=== PATIENT | female | born 1930 | race Caucasian/White ===

== ENCOUNTER → 2017-08-20 | Outpatient (CLI) | payer MEDICARE, BC ==
--- NOTE | 2017-08-20 15:41 | NM ---
EXAMINATION TYPE: NM bone scan whole body DATE OF EXAM: 08/20/2017 COMPARISON: Plain film from outside institution 08/13/2017 HISTORY: Pain in thoracic spine Delayed whole-body scanning was performed following the injection of 27.8 mCi Tc 99m MDP. Images acq uired 3 hours post injection. FINDINGS: There is a marked thoracic lumbar scoliosis as noted on plain film. Bandlike area of increased radio paracentral uptake is noted at approximately T7 or T8 level compatible with wedge compression deformi ty seen on plain film. There may be rudimentary rib at L1. Bone mineralization is reduced. Costoverte bral angle uptake is mildly increased at the lower thoracic levels likely due to degenerative change. Uptake within the proximal humerus bilaterally, knees, hands, wrists is likely degenerative. Soft tis darryl uptake is normal. Uptake along the anterior seventh rib on the right may be posttraumatic. Sterno clavicular joint arthropathy also suspected. IMPRESSION: Osteoporotic compression fracture possibly T7 or T8. Correlate for anterior rib fracture on the right . Degenerative changes as described.
== END | disposition home or self-care (01) ==
LOC: RADNMMAIN 10:39
PROVIDERS: ATTEND Physical Medicine & Rehabilitation
DX: S22.050A Wedge compression fracture of T5-T6 vertebra, initial encounter for closed fracture (principal); M47.24 Other spondylosis with radiculopathy, thoracic region
CPT/HCPCS: 78306; A9503

== ENCOUNTER → 2017-09-04 | Outpatient (CLI) | payer MEDICARE, BC ==
--- NOTE | 2017-09-08 18:13 | ENG ---
ELECTRONYSTAGMOGRAM REPORT VIDEO ELECTRONYSTAGMOGRAPHIC REPORT: AGE: 86 VNG INDICATIONS: 86 -year-old female with vertigo onset 4 months ago and staying the same. Dizziness can be provoked by any of the body positions, hearing loss left ear, tinnitus in the left ear, pulsating. VNG FINDINGS: SPONTANEOUS NYSTAGMUS: SACCADES: Saccades shows intact peak velocities, accuracies and latencies. GAZE TEST: Gaze with fixation shows no nystagmus in any of the directions of gaze including centrally with vision denied. SINUSOIDAL TRACKING: Tracking shows no significant breakups at faster or slower speeds. OKN TEST: STEFANIA-HALLPIKE TEST: [place] Hallpike maneuver's were unable to be performed for the same reason. POSITION TEST: Static position testing in four different positions with eyes opened and with vision denied shows no nystagmus. 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 CALORIC TEST: Caloric testing shows 33% unilateral left caloric weakness. CONCLUSIONS: Mild chronic left vestibulopathy, well compensated. No other abnormalities found on testing. MMODL / IJN: [id number] /
== END | disposition home or self-care (01) ==
LOC: NEUROMAIN 07:08
PROVIDERS: ATTEND Family Medicine
DX: R42 Dizziness and giddiness (principal)
CPT/HCPCS: 92537; 92540

== ENCOUNTER → 2017-09-14 | Outpatient (CLI) | payer MEDICARE, BC ==
--- NOTE | 2017-09-15 17:00 | MR ---
EXAMINATION TYPE: MR brain and iac wo/w con DATE OF EXAM: 09/14/2017 COMPARISON: MRI brain 09/07/2015 HISTORY: 86-year-old female Tinnitus /Hearing loss / Vertigo TECHNIQUE: Multiplanar, multisequence images of the brain and brainstem were acquired before and aft er administration of 5.5 mL IV Gadavist. Diffusion weighted imaging was performed. Additional coned -down sequences through the internal auditory canals and posterior cranial fossa before and after IV contrast administration. FINDINGS: Diffusion weighted images demonstrate no evidence of an acute ischemic lesion in the brain. 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 This has variable m easurements on different sequences likely due to prominent pulsations. On some sequences, it measures up to 2.1 cm wide by 1.6 cm AP by 2.2 cm craniocaudal. This appears to be relatively stable as temitope red to 09/07/2015. The patient 6 x 4 mm fusiform dilatation of the basilar terminus appears relatively stable. Also, red emonstrated hypoplastic A1 segment right anterior cerebral artery. Midline structures demonstrate normal morphology. The craniocervical junction is normal. There is mild cerebral atrophy. The ventricles are of normal caliber. There is no evidence of an acute intracranial hemorrhage, infarct, mass, mass-effect or an extra-axia l fluid collection. There is no cerebellopontine angle mass. The internal auditory canals are symmetric. T2/FLAIR weighted sequences again show moderate patchy burning right white matter change particularly in the subcortical and deep white matter of both cerebral hemispheres. Confluent increased white mat ter signal is present in the periventricular regions. No significant change prior. Some patchy bilate ral paramedian pontine activity is also noted. Otherwise, no brainstem or skull base abnormalities are seen. Post contrast images demonstrate no evidence of pathologic enhancement in the posterior cranial maxwell a or the internal auditory canals. There is no abnormal enhancement of the labyrinths. Retained fluid within the right mastoid air cells. Mild mucosal thickening within the ethmoid air bertrand ls. Upper cervical spondylosis with accentuated cervical lordosis and ligamentum flavum thickening causin g mild to moderate narrowing of the upper spinal canal with prominent dorsal cord abutment. IMPRESSION: 1. 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 Appropriate follow-up and management is recommended. This does not seem to have significantly changed as compare d to 09/07/2015. (Aneurysm is remeasured on the old exam to decrease the chances of measurement discre pancy). 2. No acute intracranial abnormality seen. 3. Moderate burden of chronic T2 bright white matter change. This is nonspecific and likely relates t o chronic small vessel ischemic disease. 4. Trapped fluid in the right mastoid air cells. Correlate for any mastoid pain to exclude mastoiditi s. Otherwise, no specific abnormality seen on acoustic MRI. 5. Upper cervical spondylosis causing mild to moderate spinal canal narrowing.
== END | disposition home or self-care (01) ==
LOC: RADMRIMAIN 13:58
PROVIDERS: ATTEND Otolaryngology
DX: I67.1 Cerebral aneurysm, nonruptured (principal); H93.12 Tinnitus, left ear; H91.92 Unspecified hearing loss, left ear; R42 Dizziness and giddiness
CPT/HCPCS: 82565; 70553; A9581

== ENCOUNTER → 2018-06-10 | Outpatient (CLI) | payer MEDICARE, BC ==
--- NOTE | 2018-06-11 08:20 | BD ---
EXAMINATION TYPE: Axial Bone Density DATE OF EXAM: 06/10/2018 COMPARISON: NONE CLINICAL HISTORY: Postmenopausal female Height: 5 FT 1 IN Weight: 129 RISK FACTORS HISTORY OF: Postmenopausal woman: AGE MID 50'S Lost more than 2 inches in height since high school: YES Frequent falls: VERY UNSTEADY USES CANE MEDICATIONS: Additional Medications: FISH OIL, B12, BIOTIN,MAGNESIUM, COQ10, TYLENOL ARTHRITIS, ZOLOFT, MEMORY MED S, ATORVASTATIN, Additional History: EXAM MEASUREMENTS: Bone mineral densitometry was performed using the [employer] System. Bone mineral density as measured about the Lumbar spine is: ----- L1-L4(G/cm2): 0.902 T Score Values are as follows: ----- L2: -3.1 ----- L3: -2.3 ----- L4: -2.2 ----- L1-L4: -2.3 BASELINE Bone mineral density about the R hip (g/cm2): 0.647 Bone mineral density about the L hip (g/cm2): 0.580 T Score values are as follows: -----R Neck: -2.8 -----L Neck: -3.3 -----R Total: -3.2 -----L Total: -3.2 BASELINE IMPRESSION: Osteoporosis (T Score less than -2.5). There is increased fracture risk and therapy is usually indicated based on age. Re-Screen 1-2 years. NOTE: T-SCORE=SD OF THE YOUNG ADULT MEAN.
== END | disposition home or self-care (01) ==
LOC: RADBDWWP 15:07
PROVIDERS: ATTEND Family Medicine
DX: M81.0 Age-related osteoporosis without current pathological fracture (principal)
CPT/HCPCS: 77080

== ENCOUNTER 2019-06-10 16:22 | Observation (INO) | payer MEDICARE, BC ==
[2019-06-10] MEDS ORDERED: SODIUM CHLORIDE 0.9% 1,000 ML IV STA (16:40)
[2019-06-10 17:18] LABS: Basophils % (A) 1 %; Eosinophils # (A) 0.1 k/uL (0-0.7); Eosinophils % (A) 1 %; HCT 38.3 % (34.0-46.0); HGB 12.5 gm/dL (11.4-16.0); Lymphocytes # (A) 1.5 k/uL (1.0-4.8); Lymphocytes % (A) 18 %; MCH 33.2 pg (25.0-35.0); MCHC 32.7 g/dL (31.0-37.0); MCV 101.5 fL (80.0-100.0); Mean Platelet Volume 5.9; Monocytes # (A) 0.4 k/uL (0-1.0); Monocytes % (A) 4 %; Neutrophils # (A) 6.5 k/uL (1.3-7.7); Neutrophils % (A) 75 %; Platelet Count 245 k/uL (150-450); RBC 3.77 m/uL (3.80-5.40); RDW 12.7 % (11.5-15.5); WBC 8.7 k/uL (3.8-10.6)
[2019-06-10 17:23] LABS: INR 0.9 (<1.2); Prothrombin Time 9.6 sec (9.0-12.0)
[2019-06-10 17:29] LABS: ALT 17 U/L (9-52); AST 30 U/L (14-36); African American GFR (CKD) >90 (>60 ml/min/1.73 sqM); Albumin 4.1 g/dL (3.5-5.0); Alkaline Phosphatase 87 U/L (38-126); Anion Gap 11 mmol/L; Blood Urea Nitrogen 12 mg/dL (7-17); Calcium 9.7 mg/dL (8.4-10.2); Carbon Dioxide 22 mmol/L (22-30); Chloride 104 mmol/L (98-107); Glucose 125 mg/dL (74-99); Non-African American GFR(CKD) 81 (>60 ml/min/1.73 sqM); Potassium 4.4 mmol/L (3.5-5.1); Sodium 137 mmol/L (137-145); Total Bilirubin 0.5 mg/dL (0.2-1.3); Total Protein 6.9 g/dL (6.3-8.2)
--- NOTE | 2019-06-10 17:33 | XR ---
EXAMINATION TYPE: XR chest 2V DATE OF EXAM: 06/10/2019 COMPARISON: NONE HISTORY: Dizziness and nausea TECHNIQUE: Frontal and lateral views of the chest are obtained. FINDINGS: Heart is normal. Lungs are clear of infiltrate. There is no heart failure. There are no hi lar masses. Thoracic aorta is atheromatous. There is slight anterior wedging of mid thoracic vertebra and mild thoracic kyphosis. IMPRESSION: No active cardiopulmonary disease. Atheromatous aorta. Mild thoracic midthoracic karyn chintan fractures unchanged compared to thoracic spine x-ray 08/13/2017.
[2019-06-10 19:05] LABS: Appearance,Urine Cloudy (Clear); Bacteria,Urine Rare /hpf; Bilirubin,Urine Negative (Negative); Blood,Urine Trace (Negative); Budding Yeast,Urine Few /hpf; Color,Urine Light Yellow; Glucose,Urine (UA) Negative (Negative); Ketones,Urine Negative (Negative); Leukocyte Esterase,Urine Negative (Negative); Mucus,Urine Rare /hpf; Nitrite,Urine Negative (Negative); PH, Urine 7.5 (5.0-8.0); Protein,Urine Negative (Negative); RBC,Urine 5 /hpf (0-5); Specific Gravity,Urine 1.008 (1.001-1.035); Urobilinogen,Urine <2.0 mg/dL (<2.0)
--- NOTE | 2019-06-10 19:10 | CT ---
EXAMINATION TYPE: CT brain wo con DATE OF EXAM: 06/10/2019 COMPARISON: MRI brain and internal auditory canals 09/14/2017 INDICATION: dizziness DLP: 1051.4 mGycm, Automated exposure control for dose reduction was used. CONTRAST: None CT of the brain is performed utilizing 3 mm thick sections through the posterior fossa and 3 mm thick sections through the remaining calvarium. Study is performed within 24 hours of arrival to the hosp [facility]. No abnormal hyperdensity is present to suggest an acute intracranial hemorrhage. No mass lesion is evident. No acute infarcts are evident. Periventricular white matter hypodensity is present, likely on the bas is of chronic white matter ischemic changes. Ventricles and sulci are appropriate for the patient age. There is distal right internal carotid artery dilatation peripheral calcification compatible with ane urysm. This was present on the MRI of 2018. This is estimated to measure transverse 1.5 cm which appe ars stable from comparison. The reported basilar tip aneurysm is less well appreciated on the current examination. There is some fusiform prominence of the left distal internal carotid artery and M1 segment. Paranasal sinuses and mastoid air cells within the [id number] are clear. IMPRESSIONS: 1. Atrophy with periventricular white matter changes. 2. 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 3. Additional prior aneurysms are not as appreciated on the current exam.
[2019-06-10] MEDS ORDERED: ONDANSETRON 4 MG/2 ML VIAL IVP PRN (19:50)
[2019-06-10] MEDS ORDERED: NALOXONE 0.4 MG/ML 1 ML VIAL IV PRN (19:50)
[2019-06-10] MEDS ORDERED: TEMAZEPAM 15 MG CAP PO PRN (19:50)
--- NOTE | 2019-06-10 19:50 | ED ---
Dizziness HPI - General Chief Complaint: Dizziness Stated Complaint: Nausea Time Seen by Provider: 06/10/19 16:40 Source: patient, EMS Mode of arrival: EMS Limitations: no limitations - History of Present Illness Initial Comments: Patient presents with lightheadedness and dizziness, nausea and vomiting, syncope. She currently has no chest pain or belly pain or back pain. She is not throwing up at this time. She does not have a headache. She has no change in vision or hearing. She has a history of brain aneurysm. She has no neck pain or stiffness. She does not know the cause her symptoms and she was on the way to see her physician, when the symptoms began. She was not able to get out of the car because her symptoms were so severe. He is not sure how long she lost consciousness. - Related Data Home Medications Medication Instructions Recorded Confirmed Atorvastatin [Lipitor] 40 mg PO HS 02/13/16 06/10/19 Donepezil [Aricept] 5 mg PO HS 06/10/19 06/10/19 Latanoprost [Xalatan 0.005%] 1 drop BOTH EYES HS 06/10/19 06/10/19 Memantine [Namenda] 10 mg PO DAILY 06/10/19 06/10/19 Sertraline HCl [Zoloft] 100 mg PO DAILY 06/10/19 06/10/19 Timolol 0.5% Ophth Soln [Timoptic 1 drop BOTH EYES BID 06/10/19 06/10/19 0.5% Ophth Soln] Allergies Allergy/AdvReac Type Severity Reaction Status Date / Time peanut Allergy Nausea & Verified 06/10/19 18:51 Vomiting red dye Allergy Unknown Verified 06/10/19 18:51 acetaminophen AdvReac Unknown Verified 06/10/19 18:51 [From Tylenol-Codeine #3] aspirin [From Norgesic] AdvReac Unknown Verified 06/10/19 18:51 brompheniramine maleate AdvReac Unknown Verified 06/10/19 18:51 [From Drixoral] caffeine [From Norgesic] AdvReac Unknown Verified 06/10/19 18:51 chlorpheniramine AdvReac Unknown Verified 06/10/19 18:51 [From Novahistine DH] chlorpheniramine maleate AdvReac Unknown Verified 06/10/19 18:51 [From Ornade] chlorpromazine HCl AdvReac Unknown Verified 06/10/19 18:51 [From Thorazine] codeine AdvReac Unknown Verified 06/10/19 18:51 codeine phosphate AdvReac Unknown Verified 06/10/19 18:51 [From Tylenol-Codeine #3] dexbrompheniramine maleate AdvReac Unknown Verified 06/10/19 18:51 [From Drixoral] dextromethorphan HBr AdvReac Unknown Verified 06/10/19 18:51 [From Triaminic Cold & Cough] dicyclomine AdvReac Unknown Verified 06/10/19 18:51 dihydrocodeine bitartrate AdvReac Unknown Verified 06/10/19 18:51 [From Novahistine DH] imipramine HCl AdvReac Unknown Verified 06/10/19 18:51 [From Tofranil] orphenadrine citrate AdvReac Unknown Verified 06/10/19 18:51 [From Norgesic] oxazepam [From Serax] AdvReac Unknown Verified 06/10/19 18:51 oxytetracycline AdvReac Unknown Verified 06/10/19 18:51 [From Terramycin] oxytetracycline HCl AdvReac Unknown Verified 06/10/19 18:51 [From Terramycin] paroxetine HCl [From Paxil] AdvReac Unknown Verified 06/10/19 18:51 Penicillins AdvReac Unknown Verified 06/10/19 18:51 phenazopyridine AdvReac Unknown Verified 06/10/19 18:51 phenylephrine HCl AdvReac Unknown Verified 06/10/19 18:51 [From Novahistine DH] phenylpropanolamine HCl AdvReac Unknown Verified 06/10/19 18:51 [From Ornade] propoxyphene HCl AdvReac Unknown Verified 06/10/19 18:51 [From Darvon] pseudoephedrine HCl AdvReac Unknown Verified 06/10/19 18:51 [From Drixoral] pseudoephedrine sulfate AdvReac Unknown Verified 06/10/19 18:51 [From Drixoral] Sulfa (Sulfonamide AdvReac Unknown Verified 06/10/19 18:51 Antibiotics) sulfamethoxazole AdvReac Unknown Verified 06/10/19 18:51 [From Bactrim] tetracycline AdvReac Unknown Verified 06/10/19 18:51 tetracycline HCl AdvReac Unknown Verified 06/10/19 18:51 [From Tetracyn] trimethobenzamide HCl AdvReac Unknown Verified 06/10/19 18:51 [From Tigan] trimethoprim [From Bactrim] AdvReac Unknown Verified 06/10/19 18:51 Review of Systems ROS Statement: Those systems with pertinent positive or pertinent negative responses have been documented in the HPI. ROS Other: All systems not noted in ROS Statement are negative. Past Medical History Past Medical History: Coronary Artery Disease (CAD), Dementia, Hyperlipidemia, Memory Impairment Additional Past Medical History / Comment(s): glaucoma History of Any Multi-Drug Resistant Organisms: None Reported Past Surgical History: Hysterectomy Additional Past Surgical History / Comment(s): cataracts Past Psychological History: Depression Smoking Status: Never smoker Past Alcohol Use History: None Reported Past Drug Use History: None Reported - Past Family History Mother Family Medical History: Cancer General Exam Limitations: no limitations General appearance: alert, in no apparent distress Head exam: Present: atraumatic, normocephalic, normal inspection Eye exam: Present: normal appearance, PERRL, EOMI. Absent: scleral icterus, conjunctival injection, periorbital swelling ENT exam: Present: normal exam, mucous membranes moist Neck exam: Present: normal inspection. Absent: tenderness, meningismus, lymphadenopathy Respiratory exam: Present: normal lung sounds bilaterally. Absent: respiratory distress, wheezes, rales, rhonchi, stridor Cardiovascular Exam: Present: regular rate, normal rhythm, normal heart sounds. Absent: systolic murmur, diastolic murmur, rubs, gallop, clicks GI/Abdominal exam: Present: soft, normal bowel sounds. Absent: distended, tenderness, guarding, rebound, rigid Extremities exam: Present: normal inspection, full ROM, normal capillary refill. Absent: tenderness, pedal edema, joint swelling, calf tenderness Back exam: Present: normal inspection Neurological exam: Present: alert, oriented X3, CN II-XII intact Psychiatric exam: Present: normal affect, normal mood Skin exam: Present: warm, dry, intact, normal color. Absent: rash Course Vital Signs 06/10/19 06/10/19 16:30 18:28 Temperature 97 F L Pulse Rate 60 65 Respiratory 18 18 Rate Blood Pressure 157/89 127/70 O2 Sat by Pulse 97 97 Oximetry EKG Findings - EKG Comments: EKG Findings:: Twelve-lead EKG shows ventricular rate 1 bpm, slightly prolonged MS interval, normal QRS complexes, no ST elevation or depression, interpreted by me as sinus rhythm with first-degree AV block. Medical Decision Making - Medical Decision Making Patient presents after syncopal episode. Her EKG is normal. Troponin is negative. CT of the head is negative. I don't have an exact etiology on her symptoms. Given her significant past medical history she will be admitted to the hospital. - Lab Data Result diagrams: 06/10/19 16:55 06/10/19 16:55 Lab Results 06/10/19 06/10/19 06/10/19 Range/Units 16:55 16:55 16:55 WBC 8.7 (3.8-10.6) k/uL RBC 3.77 L (3.80-5.40) m/uL Hgb 12.5 (11.4-16.0) gm/dL Hct 38.3 (34.0-46.0) % MCV 101.5 H (80.0-100.0) fL MCH 33.2 (25.0-35.0) pg MCHC 32.7 (31.0-37.0) g/dL RDW 12.7 (11.5-15.5) % Plt Count 245 (150-450) k/uL Neutrophils % 75 % Lymphocytes % 18 % Monocytes % 4 % Eosinophils % 1 % Basophils % 1 % Neutrophils # 6.5 (1.3-7.7) k/uL Lymphocytes # 1.5 (1.0-4.8) k/uL Monocytes # 0.4 (0-1.0) k/uL Eosinophils # 0.1 (0-0.7) k/uL Basophils # 0.0 (0-0.2) k/uL PT (9.0-12.0) sec INR (<1.2) Sodium 137 (137-145) mmol/L Potassium 4.4 (3.5-5.1) mmol/L Chloride 104 (98-107) mmol/L Carbon Dioxide 22 (22-30) mmol/L Anion Gap 11 mmol/L BUN 12 (7-17) mg/dL Creatinine 0.64 (0.52-1.04) mg/dL Est GFR (CKD-EPI)AfAm >90 (>60 ml/min/1.73 sqM) Est GFR (CKD-EPI)NonAf 81 (>60 ml/min/1.73 sqM) Glucose 125 H (74-99) mg/dL Plasma Lactic Acid Lee 0.9 (0.7-2.0) mmol/L Calcium 9.7 (8.4-10.2) mg/dL Total Bilirubin 0.5 (0.2-1.3) mg/dL AST 30 (14-36) U/L ALT 17 (9-52) U/L Alkaline Phosphatase 87 (38-126) U/L Troponin I (0.000-0.034) ng/mL Total Protein 6.9 (6.3-8.2) g/dL Albumin 4.1 (3.5-5.0) g/dL Urine Color Urine Appearance (Clear) Urine pH (5.0-8.0) Ur Specific [place] (1.001-1.035) Urine Protein (Negative) Urine Glucose (UA) (Negative) Urine Ketones (Negative) Urine Blood (Negative) Urine Nitrite (Negative) Urine Bilirubin (Negative) Urine Urobilinogen (<2.0) mg/dL Ur Leukocyte Esterase (Negative) Urine RBC (0-5) /hpf Urine WBC (0-5) /hpf Urine Bacteria (None) /hpf Urine Mucus (None) /hpf Urine Yeast (Budding) (None) /hpf 06/10/19 06/10/19 06/10/19 Range/Units 16:55 16:55 18:22 WBC (3.8-10.6) k/uL RBC (3.80-5.40) m/uL Hgb (11.4-16.0) gm/dL Hct (34.0-46.0) % MCV (80.0-100.0) fL MCH (25.0-35.0) pg MCHC (31.0-37.0) g/dL RDW (11.5-15.5) % Plt Count (150-450) k/uL Neutrophils % % Lymphocytes % % Monocytes % % Eosinophils % % Basophils % % Neutrophils # (1.3-7.7) k/uL Lymphocytes # (1.0-4.8) k/uL Monocytes # (0-1.0) k/uL Eosinophils # (0-0.7) k/uL Basophils # (0-0.2) k/uL PT 9.6 (9.0-12.0) sec INR 0.9 (<1.2) Sodium (137-145) mmol/L Potassium (3.5-5.1) mmol/L Chloride (98-107) mmol/L Carbon Dioxide (22-30) mmol/L Anion Gap mmol/L BUN (7-17) mg/dL Creatinine (0.52-1.04) mg/dL Est GFR (CKD-EPI)AfAm (>60 ml/min/1.73 sqM) Est GFR (CKD-EPI)NonAf (>60 ml/min/1.73 sqM) Glucose (74-99) mg/dL Plasma Lactic Acid Lee (0.7-2.0) mmol/L Calcium (8.4-10.2) mg/dL Total Bilirubin (0.2-1.3) mg/dL AST (14-36) U/L ALT (9-52) U/L Alkaline Phosphatase (38-126) U/L Troponin I <0.012 (0.000-0.034) ng/mL Total Protein (6.3-8.2) g/dL Albumin (3.5-5.0) g/dL Urine Color Light Yellow Urine Appearance Cloudy H (Clear) Urine pH 7.5 (5.0-8.0) Ur Specific [place] 1.008 (1.001-1.035) Urine Protein Negative (Negative) Urine Glucose (UA) Negative (Negative) Urine Ketones Negative (Negative) Urine Blood Trace H (Negative) Urine Nitrite Negative (Negative) Urine Bilirubin Negative (Negative) Urine Urobilinogen <2.0 (<2.0) mg/dL Ur Leukocyte Esterase Negative (Negative) Urine RBC 5 (0-5) /hpf Urine WBC 1 (0-5) /hpf Urine Bacteria Rare H (None) /hpf Urine Mucus Rare H (None) /hpf Urine Yeast (Budding) Few H (None) /hpf Disposition Clinical Impression: Syncope Disposition: ADMITTED IP TO THIS [facility] Condition: Fair Is patient prescribed a controlled substance at d/c from ED?: No Referrals: Willam Marcial MD [Primary Care Provider] - 1-2 days
[2019-06-10] MEDS ORDERED: DONEPEZIL 5 MG TAB PO SCH (21:00)
[2019-06-10] MEDS: TIMOLOL 0.5% OPHTH DROPS 5 ML BTL BOTH EYES SCH ×2 (22:18→22:19)
[2019-06-10] MEDS: LATANOPROST 0.005% OPHTH DROPS 2.5 ML BTL BOTH EYES SCH ×2 (22:18→22:20)
[2019-06-10] MEDS: ATORVASTATIN 40 MG TAB PO SCH (22:18)
[2019-06-10] MEDS ORDERED: ACETAMINOPHEN TAB 325 MG TAB PO STA (22:21)
--- NOTE | 2019-06-11 09:49 | P.CRDCN ---
History of Present Illness History of present illness: This is a pleasant 88-year-old female past medical history significant history for dementia, dyslipidemia and rheumatic fever as a child. She and her daughter deny any prior history of coronary artery disease, DC or stent placements. 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 We have been asked to see her in consultation for syncope. She states yesterday she was driving in the car with her daughter going to a physician appointment. When they got to the parking lot she attempted to get out of the car and started to feel acutely dizzy. She states her head felt very heavy and she thought she was going to fall backwards. She could not keep her balance and also felt very "foggy". Bystanders got a wheelchair and assisted her to sitting down. She denies falling or loss of consciousness. She denies associated chest pain, shortness of breath, palpitations, nausea, vomiting or diaphoresis. She is seen and examined laying flat resting comfortably in bed. She is complaining only of an achy sensation in the left lower back. Orthostatic vital signs obtained on admission were unremarkable. Telemetry tracings have been unremarkable. EKG reveals sinus mechanism with first degree AVB, left axis deviation and prior anterior wall DC. Laboratory data reviewed, WBC 8.7, hgb 12.5, plt 245, sodium 137, potassium 4.4, creatinine 0.64, cardiac enzymes negative x3. Chest xray negative for an acute cardiopulmonary process. Atheromatous aorta. Mild thoracic and mid-thoracic compression fracture. 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 Current daily cardiac medication include atorvastatin 40 mg daily. At the time of my exam: CONSTITUTIONAL: Denies fever. Denies chills. EYES: Denies blurred vision. Denies vision changes. Denies eye pain. EARS, NOSE, MOUTH & THROAT: Denies headache. Denies sore throat. Denies ear pain. CARDIOVASCULAR: Denies chest pain. Denies shortness of breath. Denies orthopnea. Denies PND. Denies palpitations. RESPIRATORY: Denies cough. GASTROINTESTINAL: Denies abdominal pain. Denies diarrhea. Denies constipation. Denies nausea. Denies vomiting. MUSCULOSKELETAL: Denies myalgias. INTEGUMENTARY: Denies pruitis. Denies rash. NEUROLOGIC: Denies numbness. Denies tingling. Denies weakness. PSYCHIATRIC: Denies anxiety. Denies depression. ENDOCRINE: Denies fatigue. Denies weight change. Denies polydipsia. Denies polyurina. GENITOURINARY: Denies burning, hematuria or urgency with micturation. HEMATOLOGIC: Denies history of anemia. Denies bleeding. Blood pressure 129/76 heart rate 79 afebrile maintaining oxygen saturation on room air GENERAL: This is a 88-year-old female in no apparent distress at the time of my examination. HEENT: Head is atraumatic, normocephalic. Pupils are equal, round. Sclerae anicteric. Conjunctivae are clear. Mucous membranes of the mouth are moist. Neck is supple. There is no jugular venous distention. No carotid bruit is heard. LUNGS: Clear to auscultation no wheezes, rales or rhonchi. No chest wall tenderness is noted on palpation or with deep breathing. HEART: Regular rate and rhythm without murmurs, rubs or gallops. S1 and S2 heard. ABDOMEN: Soft, nontender. Bowel sounds are heard. No organomegaly noted. EXTREMITIES: No evidence of peripheral edema and no calf tenderness noted. VASCULAR: Radial and dorsalis pedis pulses palpated, no evidence of clubbing. NEUROLOGIC: Patient is awake, alert and oriented x3. ASSESSMENT Near syncope, no LOC per the patient Dyslipidemia History of dementia PLAN An acute coronary event has been ruled out. No telemetry abnormalities or arrhythmia noted. No orthostatic changes. Obtain 2D echocardiogram and doppler study to assess cardiac structure and function. Check d-dimer. Thank you kindly for this consultation. Nurse Practitioner note has been reviewed, I agree with a documented findings and plan of care. Patient was seen and examined. Past Medical History Past Medical History: Coronary Artery Disease (CAD), Dementia, Hyperlipidemia, Memory Impairment Additional Past Medical History / Comment(s): glaucoma, diverticulitis, rheumatic fever as a child History of Any Multi-Drug Resistant Organisms: None Reported Past Surgical History: Hysterectomy Additional Past Surgical History / Comment(s): cataracts, brain aneurysm repair Past Anesthesia/Blood Transfusion Reactions: No Reported Reaction Past Psychological History: Depression Smoking Status: Never smoker Past Alcohol Use History: None Reported Past Drug Use History: None Reported - Past Family History Mother Family Medical History: Cancer Medications and Allergies Home Medications Medication Instructions Recorded Confirmed Type Atorvastatin [Lipitor] 40 mg PO HS 02/13/16 06/10/19 History Donepezil [Aricept] 5 mg PO HS 06/10/19 06/10/19 History Latanoprost [Xalatan 0.005%] 1 drop BOTH EYES HS 06/10/19 06/10/19 History Memantine [Namenda] 10 mg PO DAILY 06/10/19 06/10/19 History Sertraline HCl [Zoloft] 100 mg PO DAILY 06/10/19 06/10/19 History Timolol 0.5% Ophth Soln [Timoptic 1 drop BOTH EYES BID 06/10/19 06/10/19 History 0.5% Ophth Soln] Allergies Allergy/AdvReac Type Severity Reaction Status Date / Time peanut Allergy Nausea & Verified 06/10/19 21:06 Vomiting red dye Allergy Unknown Verified 06/10/19 21:06 acetaminophen AdvReac Unknown Verified 06/10/19 21:06 [From Tylenol-Codeine #3] aspirin [From Norgesic] AdvReac Unknown Verified 06/10/19 21:06 brompheniramine maleate AdvReac Unknown Verified 06/10/19 21:06 [From Drixoral] caffeine [From Norgesic] AdvReac Unknown Verified 06/10/19 21:06 chlorpheniramine AdvReac Unknown Verified 06/10/19 21:06 [From [facility]] chlorpheniramine maleate AdvReac Unknown Verified 06/10/19 21:06 [From Ornade] chlorpromazine HCl AdvReac Unknown Verified 06/10/19 21:06 [From Thorazine] codeine AdvReac Unknown Verified 06/10/19 21:06 codeine phosphate AdvReac Unknown Verified 06/10/19 21:06 [From Tylenol-Codeine #3] dexbrompheniramine maleate AdvReac Unknown Verified 06/10/19 21:06 [From Drixoral] dextromethorphan HBr AdvReac Unknown Verified 06/10/19 21:06 [From Triaminic Cold & Cough] dicyclomine AdvReac Unknown Verified 06/10/19 21:06 dihydrocodeine bitartrate AdvReac Unknown Verified 06/10/19 21:06 [From Novahistine DH] imipramine HCl AdvReac Unknown Verified 06/10/19 21:06 [From Tofranil] orphenadrine citrate AdvReac Unknown Verified 06/10/19 21:06 [From Norgesic] oxazepam [From Serax] AdvReac Unknown Verified 06/10/19 21:06 oxytetracycline AdvReac Unknown Verified 06/10/19 21:06 [From Terramycin] oxytetracycline HCl AdvReac Unknown Verified 06/10/19 21:06 [From Terramycin] paroxetine HCl [From Paxil] AdvReac Unknown Verified 06/10/19 21:06 Penicillins AdvReac Unknown Verified 06/10/19 21:06 phenazopyridine AdvReac Unknown Verified 06/10/19 21:06 phenylephrine HCl AdvReac Unknown Verified 06/10/19 21:06 [From Novahistine DH] phenylpropanolamine HCl AdvReac Unknown Verified 06/10/19 21:06 [From Ornade] propoxyphene HCl AdvReac Unknown Verified 06/10/19 21:06 [From Darvon] pseudoephedrine HCl AdvReac Unknown Verified 06/10/19 21:06 [From Drixoral] pseudoephedrine sulfate AdvReac Unknown Verified 06/10/19 21:06 [From Drixoral] Sulfa (Sulfonamide AdvReac Unknown Verified 06/10/19 21:06 Antibiotics) sulfamethoxazole AdvReac Unknown Verified 06/10/19 21:06 [From Bactrim] tetracycline AdvReac Unknown Verified 06/10/19 21:06 tetracycline HCl AdvReac Unknown Verified 06/10/19 21:06 [From Tetracyn] trimethobenzamide HCl AdvReac Unknown Verified 06/10/19 21:06 [From Tigan] trimethoprim [From Bactrim] AdvReac Unknown Verified 06/10/19 21:06 Physical Exam Vitals: Vital Signs Temp Pulse Pulse Pulse Pulse Pulse Resp 06/11/19 07:38 06/11/19 07:30 97.7 F 79 16 06/11/19 04:00 98.0 F 64 18 06/11/19 00:00 97.7 F 67 18 06/10/19 21:00 97.8 F 68 72 63 18 06/10/19 20:26 97.3 F L 67 18 06/10/19 18:28 65 18 06/10/19 16:30 97 F L 60 18 BP BP BP BP BP Pulse Ox 06/11/19 07:38 97 06/11/19 07:30 129/76 97 06/11/19 04:00 119/73 94 L 06/11/19 00:00 155/81 98 06/10/19 21:00 150/84 147/80 168/77 06/10/19 20:26 143/85 98 06/10/19 18:28 127/70 97 06/10/19 16:30 157/89 97 Intake and Output 06/10/19 06/11/19 06/11/19 22:59 06:59 14:59 Other: Voiding Method Toilet Toilet # Voids 1 Weight 63.503 kg Results 06/10/19 16:55 06/10/19 16:55 Cardiac Enzymes 06/10/19 06/10/19 06/10/19 Range/Units 16:55 16:55 22:52 AST 30 (14-36) U/L Troponin I <0.012 <0.012 (0.000-0.034) ng/mL 06/11/19 Range/Units 05:18 AST (14-36) U/L Troponin I <0.012 (0.000-0.034) ng/mL Coagulation 06/10/19 Range/Units 16:55 PT 9.6 (9.0-12.0) sec CBC 06/10/19 Range/Units 16:55 WBC 8.7 (3.8-10.6) k/uL RBC 3.77 L (3.80-5.40) m/uL Hgb 12.5 (11.4-16.0) gm/dL Hct 38.3 (34.0-46.0) % Plt Count 245 (150-450) k/uL Comprehensive Metabolic Panel 06/10/19 Range/Units 16:55 Sodium 137 (137-145) mmol/L Potassium 4.4 (3.5-5.1) mmol/L Chloride 104 (98-107) mmol/L Carbon Dioxide 22 (22-30) mmol/L BUN 12 (7-17) mg/dL Creatinine 0.64 (0.52-1.04) mg/dL Glucose 125 H (74-99) mg/dL Calcium 9.7 (8.4-10.2) mg/dL AST 30 (14-36) U/L ALT 17 (9-52) U/L Alkaline Phosphatase 87 (38-126) U/L Total Protein 6.9 (6.3-8.2) g/dL Albumin 4.1 (3.5-5.0) g/dL Current Medications Generic Name Dose Route Start Last Admin Trade Name Freq PRN Reason Stop Dose Admin Atorvastatin Calcium 40 mg 06/10/19 21:00 06/10/19 22:18 Lipitor PO 40 mg HS JOHNY Administration Donepezil HCl 5 mg 06/10/19 21:00 06/10/19 22:17 Aricept PO 5 mg HS JOHNY Administration Latanoprost 1 drops 06/10/19 21:00 06/10/19 22:20 Xalatan 0.005% BOTH EYES Not Given HS JOHNY Memantine 10 mg 06/11/19 09:00 Namenda PO DAILY JOHNY Naloxone HCl 0.2 mg 06/10/19 19:50 Narcan IV Q2M PRN Opioid Reversal Ondansetron HCl 4 mg 06/10/19 19:50 Zofran IVP Q8HR PRN Nausea And Vomiting Sertraline HCl 100 mg 06/11/19 09:00 Zoloft PO DAILY JOHNY Temazepam 15 mg 06/10/19 19:50 Restoril PO HS PRN Insomnia Timolol Maleate 1 drops 06/10/19 21:00 06/10/19 22:19 Timoptic BOTH EYES Not Given BID JOHNY Intake and Output 06/10/19 06/11/19 06/11/19 22:59 06:59 14:59 Other: Voiding Method Toilet Toilet # Voids 1 Weight 63.503 kg 06/10/19 16:55 06/10/19 16:55
[2019-06-11] MEDS: SERTRALINE 100 MG TAB PO SCH ×2 (11:30→18:33)
[2019-06-11] MEDS: MEMANTINE 10 MG TAB PO SCH (11:30)
[2019-06-11] MEDS: TIMOLOL 0.5% OPHTH DROPS 5 ML BTL BOTH EYES SCH ×2 (11:30→20:34)
[2019-06-11 11:59] VITALS: RESP 18
--- NOTE | 2019-06-11 17:05 | P.CNNES ---
History of Present Illness Consult date: 06/11/19 Requesting physician: Harley Allred Reason for Consult: Syncope History of Present Illness: Patient is a 88-year-old female, who was brought to the hospital by EMS after patient had a near syncopal spell at the doctor's office parking lot. Patient's daughter was present who provided the history. She states that patient had a doctor's appointment which is 25 miles away. After she got out of the car, patient felt dizzy, started falling forwards. She started feeling as if she was falling and blacking out, therefore her daughter help her. Another person brought a wheelchair and patient was sat down on the chair. Patient wanted to lay down on the floor, which her daughter did not let. Patient then started throwing up and she did it several times. Patient felt that she was blacking out. Patient was brought to the doctor's office where she was checked out, vitals were checked and EMS was called and patient was transferred to the hospital. Patient had orthostatics checked in the ER and was normal. Patient had an EKG which showed sinus rhythm with first-degree AV block. Left axis deviation. Anteroseptal infarct, age undetermined. CT head showed atrophy with periventricular white matter changes. 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 Additional prior aneurysms are not appreciated on the current exam. Paranasal sinuses, and external auditory canal appears clear. Chest x-ray showed no active cardiopulmonary disease. Atheromatous aorta. Mild thoracic mid thoracic compression fractures unchanged compared to the thoracic spine x-ray. Patient's daughter states that patient gets episodes of dizziness about once a week, off and on for last 3 years. She usually takes a pill and then she sleeps and when she wakes up, the dizziness is gone. The episode usually lasts for about 4 an hour. Patient states that her current episode was much more intense as compared to her usual dizzy episodes. 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 Appropriate follow-up and management is recommended. This does not seem to have significantly changes compared to 09/07/2015. Moderate burden of chronic T2 bright white matter change. Fluid in the right mastoid air cells. Correlate for any mastoid pain to exclude mastoiditis. Upper cervical spondylosis causing mild to moderate spinal canal narrowing. 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 Punctate and confluent periventricular white matter change, likely related to small vessel disease and chronic ischemic change. Patient has an ENG performed on 09/08/2017, which revealed mild chronic left vestibulopathy, well compensate d. Patient's B12 is > 1000 on 08/09/2016. Hemoglobin A1c 5.8. Thyroid functions normal. Review of Systems Positive for back pain. Denies any diplopia, denies any slurred speech, facial droop, dysphagia. Denies shortness of breath wheezing or cough. Does have back pain. Also arthritis. No chest pain. Past Medical History Past Medical History: Coronary Artery Disease (CAD), Dementia, Hyperlipidemia, Memory Impairment Additional Past Medical History / Comment(s): glaucoma, diverticulitis, rheumati c fever as a child History of Any Multi-Drug Resistant Organisms: None Reported Past Surgical History: Hysterectomy Additional Past Surgical History / Comment(s): cataracts, brain aneurysm repair Past Anesthesia/Blood Transfusion Reactions: No Reported Reaction Past Psychological History: Depression Smoking Status: Never smoker Past Alcohol Use History: None Reported Past Drug Use History: None Reported - Past Family History Mother Family Medical History: Cancer Medications and Allergies Home Medications Medication Instructions Recorded Confirmed Type Atorvastatin [Lipitor] 40 mg PO HS 02/13/16 06/10/19 History Donepezil [Aricept] 5 mg PO HS 06/10/19 06/10/19 History Latanoprost [Xalatan 0.005%] 1 drop BOTH EYES HS 06/10/19 06/10/19 History Memantine [Namenda] 10 mg PO DAILY 06/10/19 06/10/19 History Sertraline HCl [Zoloft] 100 mg PO DAILY 06/10/19 06/10/19 History Timolol 0.5% Ophth Soln [Timoptic 1 drop BOTH EYES BID 06/10/19 06/10/19 History 0.5% Ophth Soln] Allergies Allergy/AdvReac Type Severity Reaction Status Date / Time peanut Allergy Nausea & Verified 06/10/19 21:06 Vomiting red dye Allergy Unknown Verified 06/10/19 21:06 acetaminophen AdvReac Unknown Verified 06/10/19 21:06 [From Tylenol-Codeine #3] aspirin [From Norgesic] AdvReac Unknown Verified 06/10/19 21:06 brompheniramine maleate AdvReac Unknown Verified 06/10/19 21:06 [From Drixoral] caffeine [From Norgesic] AdvReac Unknown Verified 06/10/19 21:06 chlorpheniramine AdvReac Unknown Verified 06/10/19 21:06 [From Novahistine DH] chlorpheniramine maleate AdvReac Unknown Verified 06/10/19 21:06 [From Ornade] chlorpromazine HCl AdvReac Unknown Verified 06/10/19 21:06 [From Thorazine] codeine AdvReac Unknown Verified 06/10/19 21:06 codeine phosphate AdvReac Unknown Verified 06/10/19 21:06 [From Tylenol-Codeine #3] dexbrompheniramine maleate AdvReac Unknown Verified 06/10/19 21:06 [From Drixoral] dextromethorphan HBr AdvReac Unknown Verified 06/10/19 21:06 [From Triaminic Cold & Cough] dicyclomine AdvReac Unknown Verified 06/10/19 21:06 dihydrocodeine bitartrate AdvReac Unknown Verified 06/10/19 21:06 [From Novahistine DH] imipramine HCl AdvReac Unknown Verified 06/10/19 21:06 [From Tofranil] orphenadrine citrate AdvReac Unknown Verified 06/10/19 21:06 [From Norgesic] oxazepam [From Serax] AdvReac Unknown Verified 06/10/19 21:06 oxytetracycline AdvReac Unknown Verified 06/10/19 21:06 [From Terramycin] oxytetracycline HCl AdvReac Unknown Verified 06/10/19 21:06 [From Terramycin] paroxetine HCl [From Paxil] AdvReac Unknown Verified 06/10/19 21:06 Penicillins AdvReac Unknown Verified 06/10/19 21:06 phenazopyridine AdvReac Unknown Verified 06/10/19 21:06 phenylephrine HCl AdvReac Unknown Verified 06/10/19 21:06 [From Novahistine DH] phenylpropanolamine HCl AdvReac Unknown Verified 06/10/19 21:06 [From Ornade] propoxyphene HCl AdvReac Unknown Verified 06/10/19 21:06 [From Darvon] pseudoephedrine HCl AdvReac Unknown Verified 06/10/19 21:06 [From Drixoral] pseudoephedrine sulfate AdvReac Unknown Verified 06/10/19 21:06 [From Drixoral] Sulfa (Sulfonamide AdvReac Unknown Verified 06/10/19 21:06 Antibiotics) sulfamethoxazole AdvReac Unknown Verified 06/10/19 21:06 [From Bactrim] tetracycline AdvReac Unknown Verified 06/10/19 21:06 tetracycline HCl AdvReac Unknown Verified 06/10/19 21:06 [From Tetracyn] trimethobenzamide HCl AdvReac Unknown Verified 06/10/19 21:06 [From Tigan] trimethoprim [From Bactrim] AdvReac Unknown Verified 06/10/19 21:06 Physical Examination - Vital Signs Vital Signs: Vital Signs Temp Pulse Pulse Pulse Pulse Pulse Resp 06/11/19 15:55 98.2 F 64 18 06/11/19 11:57 98.0 F 68 18 06/11/19 07:38 06/11/19 07:30 97.7 F 79 16 06/11/19 04:00 98.0 F 64 18 06/11/19 00:00 97.7 F 67 18 06/10/19 21:00 97.8 F 68 72 63 18 06/10/19 20:26 97.3 F L 67 18 06/10/19 18:28 65 18 06/10/19 16:30 97 F L 60 18 BP BP BP BP BP Pulse Ox 06/11/19 15:55 119/69 95 06/11/19 11:57 143/78 95 06/11/19 07:38 97 06/11/19 07:30 129/76 97 06/11/19 04:00 119/73 94 L 06/11/19 00:00 155/81 98 06/10/19 21:00 150/84 147/80 168/77 06/10/19 20:26 143/85 98 06/10/19 18:28 127/70 97 06/10/19 16:30 157/89 97 Intake and Output 06/11/19 06/11/19 06/11/19 06:59 14:59 22:59 Intake Total 100 Balance 100 Intake: Other 100 Other: Voiding Method Toilet Toilet # Voids 1 1 On examination patient is an elderly female, in no distress. She is alert and awake, very pleasant. Her speech and language functions are normal. On cranial nerve examination her pupils are round and reacting, visual salcedo are full, extraocular muscles are intact. Face is symmetric and tongue protrudes to the midline. Palatal elevation and sensation is normal. On muscle strength testing there is no drift. The strength appears normal although patient could not cooperate in the deltoid because of arthritic problem. Her ankles and knees are normal. Hip flexion is 4+ bilaterally. Face is symmetric and plantars are downgoing. Tone and bulk of muscles normal. Results - Laboratory Findings CBC and BMP: 06/10/19 16:55 06/10/19 16:55 Abnormal Lab Findings: Abnormal Labs 06/10/19 06/10/19 06/10/19 16:55 16:55 18:22 RBC 3.77 L MCV 101.5 H D-Dimer Glucose 125 H Urine Appearance Cloudy H Urine Blood Trace H Urine Bacteria Rare H Urine Mucus Rare H Urine Yeast (Budding) Few H 06/11/19 10:41 RBC MCV D-Dimer 0.85 H Glucose Urine Appearance Urine Blood Urine Bacteria Urine Mucus Urine Yeast (Budding) Assessment and Plan Assessment: * Near syncopal spell, unclear etiology. Uncertain if related to peripheral vestibular dysfunction. Doubt cerebellar TIA. * Very large right ICA aneurysm over 2 cm. * First-degree heart block noted on EKG. Plan: * Patient has been having recurrent episodes of vertigo. The current episode wa s associated with syncopal symptoms. Patient is currently on Aricept 5 mg daily. Aricept has to be taken with "caution" in patients with heart block. I suggested patient to stop Aricept. She can continue memantine 10 mg daily. * Patient was recommended to follow up with her surgeon, who deals with the aneurysm. She may need repeat MRA. * I was considering placing her on aspirin 81 mg, but because of the very large aneurysm, would avoid placing on antiplatelet medication. * Patient is neurologically clear for discharge.
--- NOTE | 2019-06-11 18:55 | ECHOF ---
Referral Reason:syncope MEASUREMENTS -------- HEIGHT: 152.4 cm WEIGHT: 63.5 kg BP: RVIDd: 3.2 cm (< 3.3) IVSd: 1.3 cm (0.6 - 1.1) LVIDd: 3.2 cm (3.9 - 5.3) LVPWd: 1.5 cm (0.6 - 1.1) IVSs: 1.3 cm LVIDs: 2.9 cm LVPWs: 1.0 cm LA Diam: 3.1 cm (2.7 - 3.8) LAESV Index (A-L): 20.03 ml/m Ao Diam: 2.8 cm (2.0 - 3.7) AV Cusp: 1.7 cm (1.5 - 2.6) LA Diam: 3.9 cm (2.7 - 3.8) MV EXCURSION: 13.536 mm (> 18.000) MV EF SLOPE: 41 mm/s (70 - 150) EPSS: 0.1 cm MV E Enrique: 0.38 m/s MV DecT: 227 ms MV A Enrique: 0.90 m/s MV E/A Ratio: 0.43 RAP: 5.00 mmHg RVSP: 17.86 mmHg FINDINGS -------- Undetermined rhythm. This was a technically adequate study. The left ventricular size is normal. There is mild concentric left ventricular hypertrophy. Overa ll left ventricular systolic function is low-normal with, an EF between 50 - 55 %. The right ventricle is normal in size. The right atrial size is normal. There is mild aortic valve sclerosis. There is no evidence of aortic regurgitation. The mitral valve leaflets are mildly thickened. Mild mitral annular calcification present. Mild-t o-moderate mitral regurgitation is present. Mild tricuspid regurgitation present. Right ventricular systolic pressure is normal at < 35 mmHg. There is no evidence of pulmonary hypertension. There is no pulmonic regurgitation present. The aortic root size is normal. There is no pericardial effusion. CONCLUSIONS -------- 1. Undetermined rhythm. 2. This was a technically adequate study. 3. The left ventricular size is normal. 4. There is mild concentric left ventricular hypertrophy. 5. Overall left ventricular systolic function is low-normal with, an EF between 50 - 55 %. 6. The right ventricle is normal in size. 7. The right atrial size is normal. 8. There is mild aortic valve sclerosis. 9. There is no evidence of aortic regurgitation. 10. The mitral valve leaflets are mildly thickened. 11. Mild mitral annular calcification present. 12. [id number] mitral regurgitation is present. 13. Mild tricuspid regurgitation present. 14. Right ventricular systolic pressure is normal at < 35 mmHg. 15. There is no evidence of pulmonary hypertension. 16. There is no pulmonic regurgitation present. 17. The aortic root size is normal. 18. There is no pericardial effusion. RAIL TRANSIT OPERATOR: Radha Powers RDCS
[2019-06-11] MEDS ORDERED: ACETAMINOPHEN TAB 325 MG TAB PO STA (20:14)
[2019-06-11] MEDS: LATANOPROST 0.005% OPHTH DROPS 2.5 ML BTL BOTH EYES SCH (20:34)
[2019-06-11] MEDS: ATORVASTATIN 40 MG TAB PO SCH (20:35)
--- NOTE | 2019-06-11 22:06 | P.HPIM ---
History of Present Illness H&P Date: 06/11/19 Chief Complaint: Dizzy History of presenting complaint: This is a very pleasant 88-year-old patient of Dr. pitts. Chronic stable medical conditions include dementia, hyperlipidemia, diverticulosis, does use a cane at baseline. Patient actually did go to see his family doctor. In the parking lot patient suddenly became very dizzy, lost (her focus, needed help as she was going to fall down. No chest pain no palpitation. No change in speech. No headache. No focal weakness. No tongue biting or incontinence. No seizure activity. She was brought to the ER. Patient unclear about the events that transpired in the meantime. Patient's orthostatics were negative. Pulse was 60 and a blood pressure 1 57 x 89 when she arrived. Symptoms are greatly improved by late morning. No arrhythmia was reported. Cardiology and neurology were consulted. Patient is a bit forgetful with the history. Review of systems: GEN.: None EYES: None HEENT: Decreased hearing] NECK: None RESPIRATORY: None CARDIOVASCULAR: None GASTROINTESTINAL: None GENITOURINARY: None MUSCULOSKELETAL: Joint pains LYMPHATICS: None HEMATOLOGICAL: None PSYCHIATRY: Forgetful NEUROLOGICAL: As above( Social history: No smoking or alcohol. Consulted Dr. Contreras. Does use a (cane. Family history: Cancer Physical examination: VITAL SIGNS: 97, 60, 18, 157/69, 97% room air GENERAL: BMI 26.5, laying in bed comfortable. EYES: Pupils equal. Conjunctiva normal. HEENT: External appearance of nose and ears normal, oral cavity grossly normal. NECK: JVD not raised; masses not palpable. HEART: First and second heart sounds are normal; no edema. LUNGS: Respiratory rate normal; clear to auscultation. ABDOMEN: Soft, nontender, liver spleen not palpable, no masses palpable. PSYCH: Patient is able to answer questions for most part but limited forgetfull. NEUROLOGICAL: Cranial nerves grossly intact; no facial asymmetry, power and sensation grossly intact. LYMPHATICS: No lymph nodes palpable in the axilla and neck MUSCULAR skeletal: Evidence of OA especially in the hands INVESTIGATIONS, reviewed in the clinical context: White count 8.7 hemoglobin 12.5 platelets 245 potassium 4.4 crit 0.64 Troponin I 3 negative EKG tracing personally reviewed by me-poor R-wave progression some nonspecific T-wave changes Chest x-ray film personally reviewed by me-lung salcedo clear CT is primary atrophy, distal right internal carotid artery aneurysm present previously 1.5 cm 2-D echo EF 50-55% Assessment: -This is a patient who presented with sudden onset of increasing becoming dizzy vision was up at 40, losing her balance. The differential includes either cerebellar TIA or acute vestibular dysfunction. It appear to be self-limiting. Arrhythmia is to be ruled out. 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 Neurology was consulted. Cardiology was consulted. Neuro checks were ordered. Patient put on telemetry to rule out any arrhythmia. Add Lovenox for DVT prophylaxis. We will watch for 24 hours. Patient has improved clinically since her presentation. Care was discussed with the patient. Past Medical History Past Medical History: Coronary Artery Disease (CAD), Dementia, Hyperlipidemia, Memory Impairment Additional Past Medical History / Comment(s): glaucoma, diverticulitis, rheumatic fever as a child History of Any Multi-Drug Resistant Organisms: None Reported Past Surgical History: Hysterectomy Additional Past Surgical History / Comment(s): cataracts, brain aneurysm repair Past Anesthesia/Blood Transfusion Reactions: No Reported Reaction Past Psychological History: Depression Smoking Status: Never smoker Past Alcohol Use History: None Reported Past Drug Use History: None Reported - Past Family History Mother Family Medical History: Cancer Medications and Allergies Home Medications Medication Instructions Recorded Confirmed Type Atorvastatin [Lipitor] 40 mg PO HS 02/13/16 06/10/19 History Donepezil [Aricept] 5 mg PO HS 06/10/19 06/10/19 History Latanoprost [Xalatan 0.005%] 1 drop BOTH EYES HS 06/10/19 06/10/19 History Memantine [Namenda] 10 mg PO DAILY 06/10/19 06/10/19 History Sertraline HCl [Zoloft] 100 mg PO DAILY 06/10/19 06/10/19 History Timolol 0.5% Ophth Soln [Timoptic 1 drop BOTH EYES BID 06/10/19 06/10/19 History 0.5% Ophth Soln] Allergies Allergy/AdvReac Type Severity Reaction Status Date / Time peanut Allergy Nausea & Verified 06/10/19 21:06 Vomiting red dye Allergy Unknown Verified 06/10/19 21:06 acetaminophen AdvReac Unknown Verified 06/10/19 21:06 [From Tylenol-Codeine #3] aspirin [From Norgesic] AdvReac Unknown Verified 06/10/19 21:06 brompheniramine maleate AdvReac Unknown Verified 06/10/19 21:06 [From Drixoral] caffeine [From Norgesic] AdvReac Unknown Verified 06/10/19 21:06 chlorpheniramine AdvReac Unknown Verified 06/10/19 21:06 [From Novahistine DH] chlorpheniramine maleate AdvReac Unknown Verified 06/10/19 21:06 [From Ornade] chlorpromazine HCl AdvReac Unknown Verified 06/10/19 21:06 [From Thorazine] codeine AdvReac Unknown Verified 06/10/19 21:06 codeine phosphate AdvReac Unknown Verified 06/10/19 21:06 [From Tylenol-Codeine #3] dexbrompheniramine maleate AdvReac Unknown Verified 06/10/19 21:06 [From Drixoral] dextromethorphan HBr AdvReac Unknown Verified 06/10/19 21:06 [From Triaminic Cold & Cough] dicyclomine AdvReac Unknown Verified 06/10/19 21:06 dihydrocodeine bitartrate AdvReac Unknown Verified 06/10/19 21:06 [From [facility]] imipramine HCl AdvReac Unknown Verified 06/10/19 21:06 [From Tofranil] orphenadrine citrate AdvReac Unknown Verified 06/10/19 21:06 [From Norgesic] oxazepam [From Serax] AdvReac Unknown Verified 06/10/19 21:06 oxytetracycline AdvReac Unknown Verified 06/10/19 21:06 [From Terramycin] oxytetracycline HCl AdvReac Unknown Verified 06/10/19 21:06 [From Terramycin] paroxetine HCl [From Paxil] AdvReac Unknown Verified 06/10/19 21:06 Penicillins AdvReac Unknown Verified 06/10/19 21:06 phenazopyridine AdvReac Unknown Verified 06/10/19 21:06 phenylephrine HCl AdvReac Unknown Verified 06/10/19 21:06 [From Novahistine DH] phenylpropanolamine HCl AdvReac Unknown Verified 06/10/19 21:06 [From Ornade] propoxyphene HCl AdvReac Unknown Verified 06/10/19 21:06 [From Darvon] pseudoephedrine HCl AdvReac Unknown Verified 06/10/19 21:06 [From Drixoral] pseudoephedrine sulfate AdvReac Unknown Verified 06/10/19 21:06 [From Drixoral] Sulfa (Sulfonamide AdvReac Unknown Verified 06/10/19 21:06 Antibiotics) sulfamethoxazole AdvReac Unknown Verified 06/10/19 21:06 [From Bactrim] tetracycline AdvReac Unknown Verified 06/10/19 21:06 tetracycline HCl AdvReac Unknown Verified 06/10/19 21:06 [From Tetracyn] trimethobenzamide HCl AdvReac Unknown Verified 06/10/19 21:06 [From Tigan] trimethoprim [From Bactrim] AdvReac Unknown Verified 06/10/19 21:06 Physical Exam Vitals: Vital Signs Temp Pulse Pulse Pulse Pulse Pulse Resp 06/11/19 07:38 06/11/19 07:30 97.7 F 79 16 06/11/19 04:00 98.0 F 64 18 06/11/19 00:00 97.7 F 67 18 06/10/19 21:00 97.8 F 68 72 63 18 06/10/19 20:26 97.3 F L 67 18 06/10/19 18:28 65 18 06/10/19 16:30 97 F L 60 18 BP BP BP BP BP Pulse Ox 06/11/19 07:38 97 06/11/19 07:30 129/76 97 06/11/19 04:00 119/73 94 L 06/11/19 00:00 155/81 98 06/10/19 21:00 150/84 147/80 168/77 06/10/19 20:26 143/85 98 06/10/19 18:28 127/70 97 06/10/19 16:30 157/89 97 Intake and Output 06/10/19 06/11/19 06/11/19 22:59 06:59 14:59 Other: Voiding Method Toilet Toilet # Voids 1 1 Weight 63.503 kg Results CBC & Chem 7: 06/10/19 16:55 06/10/19 16:55 Labs: Abnormal Lab Results - Last 24 Hours (Table) 06/10/19 06/10/19 06/10/19 Range/Units 16:55 16:55 18:22 RBC 3.77 L (3.80-5.40) m/uL MCV 101.5 H (80.0-100.0) fL Glucose 125 H (74-99) mg/dL Urine Appearance Cloudy H (Clear) Urine Blood Trace H (Negative) Urine Bacteria Rare H (None) /hpf Urine Mucus Rare H (None) /hpf Urine Yeast (Budding) Few H (None) /hpf Thrombosis Risk Factor Assmnt - Choose All That Apply Any of the Below Risk Factors Present?: Yes Each Factor Represents 1 point: Hx of IBD, Obesity (BMI >25) Other Risk Factors: Yes Each Risk Factor Represents 3 Points: History of DVT/PE Other congenital or acquired thrombophilia - If yes, enter type in comment: No Thrombosis Risk Factor Assessment Total Risk Factor Score: 5 Thrombosis Risk Factor Assessment Level: High Risk
[2019-06-12 08:44] VITALS: BP 129/81; PULSE 77; TEMP 98.3
[2019-06-12] MEDS: SERTRALINE 100 MG TAB PO SCH (10:04)
[2019-06-12] MEDS: TIMOLOL 0.5% OPHTH DROPS 5 ML BTL BOTH EYES SCH (10:04)
[2019-06-12] MEDS: MEMANTINE 10 MG TAB PO SCH (10:04)
--- NOTE | 2019-06-12 10:51 | P.PN ---
Subjective This is a pleasant 88-year-old female past medical history significant history for dementia, dyslipidemia and rheumatic fever as a child. She and her daughter deny any prior history of coronary artery disease, [place] or stent placements. 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 She is seen and examined laying flat resting comfortably in bed in no acute distress. She denies chest pain, shortness of breath, dizziness or palpitations. There has been no further near syncope. Echocardiogram revealed preserved LV systolic function w ith EF 50-55% and mild-moderate MR. Blood pressure 129/81 heart rate 77 afebrile and maintaining oxygen saturation on room air. D-dimer unremarkable for her age. Telemetry tracings unremarkable, no acute arrhythmia noted. GENERAL: This is a 88-year-old female in no apparent distress at the time of my examination. HEENT: Head is atraumatic, normocephalic. Pupils are equal, round. Sclerae anicteric. Conjunctivae are clear. Mucous membranes of the mouth are moist. Neck is supple. There is no jugular venous distention. No carotid bruit is heard. LUNGS: Clear to auscultation no wheezes, rales or rhonchi. No chest wall tenderness is noted on palpation or with deep breathing. HEART: Regular rate and rhythm without murmurs, rubs or gallops. S1 and S2 heard. EXTREMITIES: No evidence of peripheral edema and no calf tenderness noted. ASSESSMENT Near syncope, no LOC per the patient. No cardiac etiology for symptoms. Likely due to position change. Dyslipidemia History of dementia PLAN Apply 30-day event monitor. Follow up in the office with Dr. Dyer in 6 weeks. Stable for discharge from a cardiac perspective. Nurse Practitioner note has been reviewed, I agree with a documented findings and plan of care. Patient was seen and examined. Objective - Vital Signs Vital signs: Vital Signs Temp 98.3 F 06/12/19 08:00 Pulse 77 06/12/19 08:00 Resp 18 06/12/19 08:00 BP 129/81 06/12/19 08:00 Pulse Ox 96 06/12/19 08:00 Intake & Output 06/11/19 06/12/19 06/12/19 18:59 06:59 18:59 Intake Total 100 Balance 100 Intake: Other 100 Other: Voiding Method Toilet Toilet Toilet # Voids 1 1 - Labs CBC & Chem 7: 06/10/19 16:55 06/10/19 16:55 Labs: Abnormal Lab Results - Last 24 Hours (Table) 06/11/19 Range/Units 10:41 D-Dimer 0.85 H (<0.60) mg/L FEU
--- NOTE | 2019-06-18 21:23 | P.DS ---
Providers Date of admission: 06/10/19 19:50 Expected date of discharge: 06/12/19 Attending physician: Chris Fuller Consults: 06/10/19 19:51 Consult Physician Routine Consulting Provider: Thierno Wharton Consult Reason/Comments: syncope Do you want consulting provider notified?: Yes Consult Physician Routine Consulting Provider: Laurie Escalera Consult Reason/Comments: syncope Do you want consulting provider notified?: Yes Primary care physician: Willam Marcial [facility] Hospital Course: Chief Complaint: Dizzy Hospital course: This is a very pleasant 88-year-old patient of Dr. marcial. Chronic stable medical conditions include dementia, hyperlipidemia, diverticulosis, does use a cane at baseline. Patient actually did go to see his family doctor. In the parking lot patient suddenly became very dizzy, lost (her focus, needed help as she was going to fall down. No chest pain no palpitation. No change in speech. No headache. No focal weakness. No tongue biting or incontinence. No seizure activity. She was brought to the ER. Patient unclear about the events that transpired in the meantime. Patient's orthostatics were negative. Pulse was 60 and a blood pressure 1 57 x 89 when she arrived. Symptoms are greatly improved by late morning. No arrhythmia was reported. Cardiology and neurology were consulted. Patient is a bit forgetful with the history. Neurological workup was negative. This could have been a cerebellar TIA. Patient was back to her baseline before discharge. Consultation: Dr. Dyer from cardiology Dr. Beatty from neurology Physical examination: VITAL SIGNS: 98.3, 77, 18, 129/81, 96% on room air GENERAL: Sitting up comfortable. EYES: Pupils equal. Conjunctiva normal. HEENT: External appearance of nose and ears normal, oral cavity grossly normal. NECK: JVD not raised; masses not palpable. HEART: First and second heart sounds are normal; no edema. LUNGS: Respiratory rate normal; clear to auscultation. ABDOMEN: Soft, nontender, liver spleen not palpable, no masses palpable. PSYCH: Patient is able to answer questions for most part but limited forgetfull. NEUROLOGICAL: Cranial nerves grossly intact; no facial asymmetry, power and sensation grossly intact. MUSCULAR skeletal: Evidence of OA especially in the hands INVESTIGATIONS, reviewed in the clinical context: White count 8.7 hemoglobin 12.5 platelets 245 potassium 4.4 crit 0.64 Troponin I 3 negative EKG tracing personally reviewed by me-poor R-wave progression some nonspecific T-wave changes Chest x-ray film personally reviewed by me-lung salcedo clear CT is primary atrophy, distal right internal carotid artery aneurysm present previously 1.5 cm 2-D echo EF 50-55% Final diagnosis: -This is a patient who presented with sudden onset of increasing becoming dizzy vision was up at 40, losing her balance. Possibly cerebellar TIA -Primary osteoarthritis -Chronic right internal carotid artery aneurysm, 1.5 cm -[id number] cognitive impairment possibly from late onset Alzheimer's dementia -Hyperlipidemia -Depression not otherwise specified Disposition: Home Patient Condition at Discharge: Stable Plan - Discharge Summary Discharge Rx Participant: No New Discharge Prescriptions: New Aspirin 81 mg PO DAILY #30 chewable Continue Atorvastatin [Lipitor] 40 mg PO HS Memantine [Namenda] 10 mg PO DAILY Latanoprost [Xalatan 0.005%] 1 drop BOTH EYES HS Sertraline HCl [Zoloft] 100 mg PO DAILY Timolol 0.5% Ophth Soln [Timoptic 0.5% Ophth Soln] 1 drop BOTH EYES BID Discontinued Donepezil [Aricept] 5 mg PO HS Discharge Medication List Atorvastatin [Lipitor] 40 mg PO HS 02/13/16 [History] Latanoprost [Xalatan 0.005%] 1 drop BOTH EYES HS 06/10/19 [History] Memantine [Namenda] 10 mg PO DAILY 06/10/19 [History] Sertraline HCl [Zoloft] 100 mg PO DAILY 06/10/19 [History] Timolol 0.5% Ophth Soln [Timoptic 0.5% Ophth Soln] 1 drop BOTH EYES BID 06/10/19 [History] Aspirin 81 mg PO DAILY #30 chewable 06/12/19 [Rx] Follow up Appointment(s)/Referral(s): Peter Wallace MD [STAFF PHYSICIAN] - 1 Week Willam Marcial MD [Primary Care Provider] - 1-2 days Magy Dyer MD [STAFF PHYSICIAN] - 6 Weeks (office will call patient with appointment date and time. )
--- NOTE | 2019-07-14 13:45 | EM ---
EVENT MONITOR This is a 30-day event monitor recording. Patient had several recordings that were noted most of them were sinus rhythm with sinus arrhythmia. There was one episode of paroxysmal atrial tachycardia of about 3 beats in a row. Overall, no significant ventricular or supraventricular abnormal rhythms were noted. There was no bradyarrhythmia. Some of these strips were auto capture and some were recorded by the patient but no symptoms were specified. FINAL IMPRESSION: Unremarkable 30-day event monitor with one episode of a 3 to 4 beat run of PAT. Specifically, no evidence of any SVT of VT or bradyarrhythmia of significance was noted. MMODL / IJN: [id number] /
== END 2019-06-12 13:57 ==
LOC: EC 16:22 → 1SOBS 19:50
PROVIDERS: ADMIT Hospitalist; ATTEND Hospitalist
DX: R42 Dizziness and giddiness (principal); R55 Syncope and collapse; I72.0 Aneurysm of carotid artery; I44.0 Atrioventricular block, first degree; I70.0 Atherosclerosis of aorta; I25.10 Atherosclerotic heart disease of native coronary artery without angina pectoris; F03.90 Unspecified dementia, unspecified severity, without behavioral disturbance, psychotic disturbance, mood disturbance, and anxiety; E78.5 Hyperlipidemia, unspecified; H40.9 Unspecified glaucoma; F32.9 Major depressive disorder, single episode, unspecified; M48.54XA Collapsed vertebra, not elsewhere classified, thoracic region, initial encounter for fracture; K57.90 Diverticulosis of intestine, part unspecified, without perforation or abscess without bleeding; K58.9 Irritable bowel syndrome, unspecified; M48.00 Spinal stenosis, site unspecified; M47.812 Spondylosis without myelopathy or radiculopathy, cervical region; M19.042 Primary osteoarthritis, left hand; M19.041 Primary osteoarthritis, right hand; R11.2 Nausea with vomiting, unspecified; R26.89 Other abnormalities of gait and mobility; E66.9 Obesity, unspecified; Z68.26 Body mass index [BMI] 26.0-26.9, adult; Z79.899 Other long term (current) drug therapy; Z88.6 Allergy status to analgesic agent; Z88.1 Allergy status to other antibiotic agents; Z91.02 Food additives allergy status; Z88.5 Allergy status to narcotic agent; Z91.010 Allergy to peanuts; Z88.0 Allergy status to penicillin; Z88.2 Allergy status to sulfonamides; Z88.8 Allergy status to other drugs, medicaments and biological substances; Z91.048 Other nonmedicinal substance allergy status; Z90.710 Acquired absence of both cervix and uterus; Z98.49 Cataract extraction status, unspecified eye; Z86.19 Personal history of other infectious and parasitic diseases; I25.2 Old myocardial infarction; Z86.718 Personal history of other venous thrombosis and embolism; Z86.79 Personal history of other diseases of the circulatory system; Z80.9 Family history of malignant neoplasm, unspecified
CPT/HCPCS: 93005 ×2; 99285; 36415; 94760; 93306; 93270; 85379; 80053; 83605; 84484 ×2; 85025; 85610; 81001; 71046; 70450; G0378 ×3